=== PATIENT | female | born 1965 | race Caucasian/White ===

== ENCOUNTER 2022-11-08 08:46 | Emergency (ER) | payer OTHER ==
[2022-11-08] MEDS ORDERED: Alum Hydrox/Mag Hydrox/Simeth 15 ML, Lidocaine 2% 15 ML PO ONE ×2 (09:15)
[2022-11-08] MEDS ORDERED: Aspirin 81 MG Tab.Chew PO ONE (09:15)
[2022-11-08 09:27] LABS: TROPONIN I HIGH SENSITIVITY 4.8 pg/mL (<=60.3)
== END 2022-11-08 11:54 | disposition home or self-care (01) ==
LOC: JP.ED 08:46
DX: K21.9 Gastro-esophageal reflux disease without esophagitis (principal); K80.20 Calculus of gallbladder without cholecystitis without obstruction; I10 Essential (primary) hypertension; Z88.1 Allergy status to other antibiotic agents; Z79.899 Other long term (current) drug therapy; Z86.16 Personal history of COVID-19
CPT/HCPCS: 36415; 71045; 80048; 84484; 85651; 93005; 99285; A9270